=== PATIENT | male | born 1965 | race Two or more races ===

== ENCOUNTER 2022-04-11 08:14 | Outpatient (CLI) | payer OTHER | END 2022-04-11 08:24 | disposition home or self-care (01) | LOC: LAB 08:14 → EDSEX 08:14 → LAB 08:24 | PROVIDERS: ATTEND Internal Medicine | DX: E78.2 Mixed hyperlipidemia (principal); E55.9 Vitamin D deficiency, unspecified; E03.8 Other specified hypothyroidism; N40.0 Benign prostatic hyperplasia without lower urinary tract symptoms; R73.03 Prediabetes; D64.9 Anemia, unspecified ==

== ENCOUNTER 2022-08-15 08:07 | Outpatient (CLI) | payer OTHER | END 2022-08-15 08:09 | disposition home or self-care (01) | LOC: LAB 08:07 | PROVIDERS: ATTEND Internal Medicine | DX: E78.2 Mixed hyperlipidemia (principal); E55.9 Vitamin D deficiency, unspecified; E03.8 Other specified hypothyroidism; N40.0 Benign prostatic hyperplasia without lower urinary tract symptoms; R73.03 Prediabetes ==

== ENCOUNTER 2023-01-02 07:58 | Outpatient (CLI) | payer OTHER ==
[2023-01-02 09:28] LABS: URINE APPEARANCE Clear; URINE BILIRRUBIN Negative (NEGATIVE); URINE BLOOD Negative; URINE COLOR Yellow; URINE GLUCOSE Negative (NEGATIVE); URINE LEUKOCYTE Negative; URINE NITRATE Negative; URINE PROTEIN Negative (NEGATIVE)
[2023-01-02 09:30] LABS: HEMATOCRIT 41.5 % (39.0-48.0); HEMOGLOBIN 13.6 g/dL (13-16.00); MEAN CELL VOLUME 85.3 fL (80.0-100.00); MEAN CORPUSCULAR HGB CONC 32.8 g/dl (32.0-36.0); PLATELET COUNT 247 K/uL (150-450); RED BLOOD COUNT 4.87 M/uL (4.00-6.00); RED CELL DISTRIBUTION WIDTH 13.6 % (11.5-14.5)
[2023-01-02 09:31] LABS: URINE RBC 2.8 uL (0.0-20.8)
[2023-01-02 09:37] LABS: URINE BACTERIA 2.5 uL (0.0-1933); URINE EPITHELIAL CELLS 0.7 uL (0.0-38.8)
[2023-01-02 10:16] LABS: ALBUMIN 3.7 gm/dL (3.4-5.0); BILIRUBIN TOTAL 0.42 mg/dL (0.3-1.2); CALCIUM 8.6 mg/dL (8.5-10.1); CHOL HDL RATIO 3.8 (0-5.0); CREATININE SERUM 0.97 mg/dL (0.70-1.30); GFR 80.06; GLOBULINA 3.2 G/DL (2.4-3.5); POTASSIUM 4.26 mEq/L (3.5-5.1); T4 FREE 1.06 NG/ML (0.76-1.46); TOTAL PROTEIN 6.9 gm/dL (6.4-8.2); TSH 1.59 uIU/mL (0.358-3.74)
== END 2023-01-02 08:01 | disposition home or self-care (01) ==
LOC: LAB 07:58
PROVIDERS: ATTEND Internal Medicine
DX: E78.2 Mixed hyperlipidemia (principal); E55.9 Vitamin D deficiency, unspecified; E03.8 Other specified hypothyroidism; N40.0 Benign prostatic hyperplasia without lower urinary tract symptoms; R73.03 Prediabetes